=== PATIENT | female | born 1965 | race African-American/Black ===

== ENCOUNTER 2017-02-27 20:13 | Observation (INO) | payer MEDICAID, OTHER ==
[~2017-02-27 20:13] MED LIST: AZIT500T2 PO; BENZ1CAP51 PO; DICL1GEL7 TOPICAL; EXCETAB PO; GABA300C5 PO; HYDR-3583 PO; HYDR25TA5 PO; PROZ20CA11 PO; ROPI0.5T PO
[2017-02-27 20:15] VITALS: BP 171/103; PULSE 85; RESP 16; TEMP 97.9; O2SAT 100
--- NOTE | 2017-02-27 22:10 | RADRPT ---
EXAM DATE/TIME: 02/27/2017 21:22 [facility] COMPARISON: No previous studies available for comparison. INDICATIONS : Chest pain. MEDICAL HISTORY : None. SURGICAL HISTORY : None. ENCOUNTER: Initial ACUITY: 1 day PAIN SCORE: 5/10 LOCATION: Bilateral chest FINDINGS: PA and lateral views of the chest demonstrate the lungs to be symmetrically aerated without evidence of mass, infiltrate or effusion. The cardiomediastinal contours are unremarkable. Osseous structure s are intact. CONCLUSION: No acute cardiopulmonary process. Conrado Prado MD on February 27, 2017 at 22:07 Board Certified Radiologist. This report was verified electronically.
[2017-02-27 22:38] LABS: BASOPHIL % 0.7 % (0.0-2.0); EOSINOPHIL # 0.1 TH/MM3 (0-0.4); EOSINOPHIL % 2.1 % (0.0-4.0); HEMO FLAGS DIFF FINAL; LYMPH % 44.4 % (9.0-44.0); LYMPHOCYTE # 2.1 TH/MM3 (1.0-4.8); MEAN CELL VOLUME 83.6 FL (80.0-100.0); MEAN CORPUSCULAR HEMOGLOBIN 27.1 PG (27.0-34.0); MEAN CORPUSCULAR HGB CONC 32.4 % (32.0-36.0); MONO % 10.7 % (0.0-8.0); NEUT % 42.1 % (16.0-70.0); PLATELET COUNT 312 TH/MM3 (150-450); RED BLOOD COUNT 4.43 MIL/MM3 (4.00-5.30); RED CELL DISTRIBUTION WIDTH 14.8 % (11.6-17.2); WHITE BLOOD COUNT 4.8 TH/MM3 (4.0-11.0)
--- NOTE | 2017-02-27 22:45 | PD ---
HPI Chief Complaint: Chest Pain Time Seen by Provider: 22:37 Travel History International Travel<30 days: No Contact w/Intl Traveler<30days: No Traveled to known affect area: No History of Present Illness HPI 51-year-old female complains of chest pain. Patient states that the chest pain started yesterday. Patient states that the pain aching pain started in the left chest with radiation to left upper arm. Patient states that the pain was intermittent yesterday but became constant since this morning. Patient denies any nausea vomiting diaphoresis. Patient denies any palpitation. Patient denies any coughing congestion fever chills. Patient denies any history of CAD. Patient has history hypertension however not on medication recently. Patient denies history diabetes or dyslipidemia. Patient is a nonsmoker. Patient denies family history of heart disease. Patient states that she has been burping recently. On a scale of 1-10 the pain is an 8. Patient also states that she has more swelling of the lower extremity for the past 2 days. Patient states that she has been doing a lot of walking recently. Patient denies any history of CHF. PFSH Past Medical History Hx Anticoagulant Therapy: No Arthritis: Yes (OSTEOARTHRITIS) Autoimmune Disease: No Anxiety: No Depression: Yes Heart Rhythm Problems: No Cancer: No Cardiovascular Problems: Yes (HTN) High Cholesterol: No Chemotherapy: No Chest Pain: No Congestive Heart Failure: No Cerebrovascular Accident: No Diabetes: No Diminished Hearing: No Endocrine: No Gastrointestinal Disorders: Yes (Constipation) GERD: No Genitourinary: No Hepatitis: No Hiatal Hernia: No Hypertension: Yes Immune Disorder: No Implanted Vascular Access Dvce: No Musculoskeletal: Yes (CHRONIC BACK PAIN) Neurologic: No Psychiatric: Yes Reproductive: No Respiratory: No Immunizations Current: Yes Thyroid Disease: No Ulcer: No PNEUMOCCOCAL Vaccine (Year): 2 Menopausal: Yes : 3 Para: 3 Ovarian Cysts: Yes Tubal Ligation: Yes Past Surgical History Abdominal Surgery: No Cardiac Surgery: No Ear Surgery: No Endocrine Surgery: No Eye Surgery: No Genitourinary Surgery: No Gynecologic Surgery: Yes (hysterectomy) Hysterectomy: Yes Joint Replacement: No Neurologic Surgery: No Oral Surgery: No Pacemaker: No Thoracic Surgery: No Other Surgery: Yes Social History Alcohol Use: No (STATES QUIT 2014) Tobacco Use: No (QUIT 2014) Substance Use: No (2012) Allergies-Medications (Allergen,Severity, Reaction): Coded Allergies: Sulfa (Sulfonamide Antibiotics) (Unverified Allergy, Severe, HIVES, TONGUE SWELLING, 11/19/16) celecoxib (Unverified Allergy, Severe, HIVES, 11/19/16) acetaminophen (Unverified Allergy, Intermediate, HIVES, 11/19/16) oxycodone (Unverified Allergy, Intermediate, HIVES, 11/19/16) Reported Meds & Prescriptions Reported Meds & Active Scripts Active Benzonatate 200 Mg Cap 200 Mg PO TID PRN Azithromycin 500 Mg Tab 500 Mg PO DAILY Ropinirole 0.5 Mg Tab 0.5 Mg PO HS Take 1-3 tabs qhs Prozac (Fluoxetine HCl) 20 Mg Cap 20 Mg PO DAILY Diclofenac Topical 1% Gel 1 Applic TOPICAL QID Hydrocodone-Acetaminophen 10-325 mg Tab 1 Tab PO Q6H PRN Hydrochlorothiazide 25 Mg Tab 25 Mg PO DAILY Reported Excedrin Migraine (Wlpcveh-Qbcwbfvmjhcao-Yiqiqyij) 250-250-65 Mg Tab 2 Tab PO PRN Gabapentin 300 Mg Cap 300 Mg PO TID Review of Systems General / Constitutional: No: Fever Eyes: No: Visual changes HENT: No: Headaches Cardiovascular: Positive: Chest Pain or Discomfort Respiratory: No: Shortness of Breath Gastrointestinal: No: Abdominal Pain Genitourinary: No: Dysuria Musculoskeletal: No: Pain Skin: No Rash Neurologic: No: Weakness Psychiatric: No: Depression Endocrine: No: Polydipsia Hematologic/Lymphatic: No: Easy Bruising Physical Exam Narrative GENERAL: Well-nourished, well-developed patient. SKIN: Focused skin assessment warm/dry. HEAD: Normocephalic. EYES: No scleral icterus. No injection or drainage. NECK: Supple, trachea midline. No JVD or lymphadenopathy. CARDIOVASCULAR: Regular rate and rhythm without murmurs, gallops, or rubs. RESPIRATORY: Breath sounds equal bilaterally. No accessory muscle use. GASTROINTESTINAL: Abdomen soft, non-tender, nondistended. MUSCULOSKELETAL: No cyanosis, or edema. BACK: Nontender without obvious deformity. No CVA tenderness. Neurologic exam normal. Data Data Last Documented VS Vital Signs Date Time Temp Pulse Resp B/P (MAP) Pulse Ox O2 Delivery O2 Flow Rate FiO2 02/27/17 20:15 97.9 85 16 171/103 (125) 100 Room Air Orders Orders Electrocardiogram (02/27/17 20:40) Basic Metabolic Panel (Bmp) (02/27/17 20:40) Ckmb (Isoenzyme) Profile (02/27/17 20:40) Complete Blood Count With Diff (02/27/17 20:40) Magnesium (Mg) (02/27/17 20:40) Prothrombin Time / Inr (Pt) (02/27/17 20:40) Act Partial Throm Time (Ptt) (02/27/17 20:40) Troponin I (02/27/17 20:40) Chest, Pa & Lat (02/27/17 20:40) CKMB (02/27/17 21:40) CKMB% (02/27/17 21:40) Labs Laboratory Tests Test 02/27/17 21:40 White Blood Count 4.8 TH/MM3 Red Blood Count 4.43 MIL/MM3 Hemoglobin 12.0 GM/DL Hematocrit 37.0 % Mean Corpuscular Volume 83.6 FL Mean Corpuscular Hemoglobin 27.1 PG Mean Corpuscular Hemoglobin Concent 32.4 % Red Cell Distribution Width 14.8 % Platelet Count 312 TH/MM3 Mean Platelet Volume 8.0 FL Neutrophils (%) (Auto) 42.1 % Lymphocytes (%) (Auto) 44.4 % Monocytes (%) (Auto) 10.7 % Eosinophils (%) (Auto) 2.1 % Basophils (%) (Auto) 0.7 % Neutrophils # (Auto) 2.0 TH/MM3 Lymphocytes # (Auto) 2.1 TH/MM3 Monocytes # (Auto) 0.5 TH/MM3 Eosinophils # (Auto) 0.1 TH/MM3 Basophils # (Auto) 0.0 TH/MM3 CBC Comment DIFF FINAL Differential Comment Prothrombin Time 10.0 SEC Prothromb Time International Ratio 0.9 RATIO Activated Partial Thromboplast Time 27.0 SEC Blood Urea Nitrogen 14 MG/DL Creatinine 0.79 MG/DL Random Glucose 85 MG/DL Calcium Level 8.7 MG/DL Magnesium Level 1.7 MG/DL Sodium Level 141 MEQ/L Potassium Level 3.1 MEQ/L Chloride Level 106 MEQ/L Carbon Dioxide Level 28.0 MEQ/L Anion Gap 7 MEQ/L Estimat Glomerular Filtration Rate 93 ML/MIN Total Creatine Kinase 177 U/L Creatine Kinase MB 1.5 NG/ML Troponin I LESS THAN 0.02 NG/ML MDM Medical Decision Making Medical Screen Exam Complete: Yes Emergency Medical Condition: Yes Interpretation(s) 12:01 AM. EKG shows sinus rhythm nonspecific ST-T wave change. Last Impressions Chest X-Ray 02/27/172039 Signed Impressions: Service Date/Time: Monday, February 27, 2017 21:22 - CONCLUSION: No acute cardiopulmonary process. Conrado Prado MD 12:01 AM. CBC within normal limit. BMP within normal limit. Cardiac enzymes are normal. Differential Diagnosis Differential diagnosis including musculoskeletal, angina, AZ, PE, pneumothorax. Narrative Course 51-year-old female with left-sided chest pain. Toradol 30 mg IV. Patient will be admitted to the chest pain center. Diagnosis Primary Impression: Chest pain Qualified Codes: R07.9 - Chest pain, unspecified Ramos Martinez MD Feb 27, 2017 22:45
[2017-02-27 22:50] LABS: INTERNATIONAL NORMALIZED RATIO 0.9 RATIO
[2017-02-27 22:55] LABS: ANION GAP 7 MEQ/L (5-15); BLOOD UREA NITROGEN 14 MG/DL (7-18); CHLORIDE 106 MEQ/L (98-107); GLOMERULAR FILTRATION RATE 93 ML/MIN (>89); MAGNESIUM 1.7 MG/DL (1.5-2.5); POTASSIUM 3.1 MEQ/L (3.5-5.1); SODIUM (NA) 141 MEQ/L (136-145)
[2017-02-27 22:58] LABS: CREATINE KINASE 177 U/L (26-192)
[2017-02-27 23:14] LABS: CKMB 1.5 NG/ML (0.5-3.6)
[2017-02-28] VITALS (7 sets, daily range): BP systolic 133–154; BP diastolic 76–88; PULSE 74–86; RESP 16–22; TEMP 96.2–97.9; O2SAT 98–100
[2017-02-28] MEDS ORDERED: SODIUM CHLORIDE 0.9% FLUSH 10 ML FLUSH IV FLUSH PRN (00:15)
[2017-02-28] MEDS ORDERED: ONDANSETRON HCL 4 MG/2 ML VIAL IV PUSH PRN (00:15)
[2017-02-28] MEDS ORDERED: ACETAMINOPHEN 500 MG CPLT PO PRN (00:15)
[2017-02-28] MEDS ORDERED: KETOROLAC TROMETHAMINE 30 MG/ML (IVP) VIAL IV PUSH ONE (00:15)
[2017-02-28 03:00] LABS: CREATINE KINASE 167 U/L (26-192)
[2017-02-28 03:12] LABS: CKMB 1.4 NG/ML (0.5-3.6)
[2017-02-28 05:02] LABS: CREATINE KINASE 165 U/L (26-192)
[2017-02-28] MEDS ORDERED: ORPHENADRINE INJ 60 MG/2 ML AMP IM ONE (07:00)
[2017-02-28] MEDS ORDERED: UNKNOWN MED (08:20)
[2017-02-28] MEDS ORDERED: cloNIDine HCL 0.1 MG TAB PO PRN (09:00)
[2017-02-28] MEDS ORDERED: SODIUM CHLORIDE 0.9% FLUSH 10 ML FLUSH IV FLUSH SCH (09:00)
[2017-02-28] MEDS ORDERED: POTASSIUM CHLORIDE 25 MEQ EFFERVESCENT TAB PO ONE (09:00)
--- NOTE | 2017-02-28 09:22 | HHI.HP ---
HPI Primary Care Physician No Primary Care Physician Chief Complaint Chest pain History of Present Illness This is a 51-year-old female that presents to ED with a complaint of left sided chest pains and she points to the left lateral aspect almost into axillary region to indicate where the discomfort is located. Is better constantly since last night. Greater than 12 hours. Certain movements seem to worsen. She has found that she has been belching more recently and it does seem to help. Has a hard time describing the type of discomfort. Rates it as a 8 out of 10 of the most intense level but more so been a 3-4 out of 10. Denies associated shortness of breath, nausea, or diaphoresis. She has complaint of some swelling in her ankles but states that improves when she elevates her legs. She also states that she has an issue with her right ankle, states she has tendinitis of her right Achilles. Denies recent illness. Denies fevers or chills. Review of Systems General: Patient denies fevers, chills recent, and recent travel HEENT: Patient denies headache, sore throat, difficulty swallowing. Cardiovascular: Has the chest discomfort as mentioned above. Denies sensation of heart beating rapidly or irregularly. No syncope. Denies diaphoresis. Respiratory: Denies shortness of breath or inspirational chest discomfort. Denies coughing wheezing or hemoptysis. GI: Patient denies nausea, vomiting, diarrhea, abdominal pain, bloody stools. Musculoskeletal: She complains of intermittent swelling in her ankles but improves when she elevates them. This has been going on for quite some time. Complains of right ankle pain stating is from 10 denies ever right Achilles. Denies calf pain. Neurovascular: Patient denies numbness, tingling, weakness in extremities. Denies headache. Endocrine: Denies polyuria and polydipsia. Hematologic: Denies easy bruising. Skin: Denies rash or itching. Past Family Social History Allergies: Coded Allergies: Sulfa (Sulfonamide Antibiotics) (Unverified Allergy, Severe, HIVES, TONGUE SWELLING, 11/19/16) celecoxib (Unverified Allergy, Severe, HIVES, 11/19/16) acetaminophen (Unverified Allergy, Intermediate, HIVES, 11/19/16) oxycodone (Unverified Allergy, Intermediate, HIVES, 11/19/16) Past Medical History States in the past she has been told that she had hypertension at times but never medicated. Denies hyperlipidemia diabetes or CAD. Past Surgical History Hysterectomy. Reported Medications Reported Meds & Active Scripts Active Diclofenac Topical 1% Gel 1 Applic TOPICAL QID Hydrocodone-Acetaminophen 10-325 mg Tab 1 Tab PO Q6H PRN Reported [Unknown Med] Excedrin Migraine (Gkiunps-Vaiezbzirrldl-Zzwenmlf) 250-250-65 Mg Tab 2 Tab PO PRN Gabapentin 300 Mg Cap 300 Mg PO TID Active Ordered Medications Current Medications Medications (Trade) Dose Ordered Sig/Tatiana Route Start Time Stop Time Status Last Admin (NS Flush) 2 ml UNSCH PRN IV FLUSH 02/28/17 00:15 (NS Flush) 2 ml BID IV FLUSH 02/28/17 09:00 (Zofran Inj) 4 mg Q6H PRN IV PUSH 02/28/17 00:15 (Catapres) 0.1 mg Q4H PRN PO 02/28/17 09:00 Family History She is not sure family history of CAD. Social History Patient quit smoking 1-1/2 years ago. No alcohol since 2014. Denies illicit drugs. Physical Exam Vital Signs Vital Signs Date Time Temp Pulse Resp B/P (MAP) Pulse Ox O2 Delivery O2 Flow Rate FiO2 02/28/17 08:46 154/78 (103) 100 02/28/17 07:10 74 17 149/79 (102) 100 Room Air 02/28/17 06:11 81 16 138/88 (105) 100 Room Air 02/28/17 04:07 16 02/28/17 01:42 98 21 02/28/17 01:18 104 98 Room Air 02/27/17 20:15 97.9 85 16 171/103 (125) 100 Room Air Physical Exam GENERAL: This is a well-nourished, well-developed patient, in no apparent distress. Patient speaks in clear complete sentences. Patient is pleasant. HEENT: Head is atraumatic and normocephalic. Neck is supple without lymphadenopathy and trachea is midline. No JVD or carotid bruits. CARDIOVASCULAR: Regular rate and rhythm without murmurs, gallops, or rubs. RESPIRATORY: Clear to auscultation. Breath sounds equal bilaterally. No wheezes , rales, or rhonchi. Left lateral chest wall is tender worsening the symptoms that she has had. No use of accessory muscles. GASTROINTESTINAL: Abdomen is nontender, nondistended. Abdomen soft. No obvious pulsatile mass or bruit. No CVA tenderness. Strong femoral pulses bilaterally. Normal bowel sounds in all quadrants. MUSCULOSKELETAL: Patient is moving upper and lower extremities freely. No calf tenderness or edema, no Homans sign. Strong pulses in upper and lower extremities. NEUROLOGICAL: Patient is alert and oriented. Cranial nerves 2-12 are grossly intact. No focal deficits and speech is clear. SKIN: No rash and turgor is normal. Laboratory Laboratory Tests Test 02/27/17 21:40 02/28/17 02:15 02/28/17 04:02 White Blood Count 4.8 Red Blood Count 4.43 Hemoglobin 12.0 Hematocrit 37.0 Mean Corpuscular Volume 83.6 Mean Corpuscular Hemoglobin 27.1 Mean Corpuscular Hemoglobin Concent 32.4 Red Cell Distribution Width 14.8 Platelet Count 312 Mean Platelet Volume 8.0 Neutrophils (%) (Auto) 42.1 Lymphocytes (%) (Auto) 44.4 Monocytes (%) (Auto) 10.7 Eosinophils (%) (Auto) 2.1 Basophils (%) (Auto) 0.7 Neutrophils # (Auto) 2.0 Lymphocytes # (Auto) 2.1 Monocytes # (Auto) 0.5 Eosinophils # (Auto) 0.1 Basophils # (Auto) 0.0 CBC Comment DIFF FINAL Differential Comment Prothrombin Time 10.0 Prothromb Time International Ratio 0.9 Activated Partial Thromboplast Time 27.0 Blood Urea Nitrogen 14 Creatinine 0.79 Random Glucose 85 Calcium Level 8.7 Magnesium Level 1.7 Sodium Level 141 Potassium Level 3.1 Chloride Level 106 Carbon Dioxide Level 28.0 Anion Gap 7 Estimat Glomerular Filtration Rate 93 Total Creatine Kinase 177 167 165 Creatine Kinase MB 1.5 1.4 Troponin I LESS THAN 0.02 LESS THAN 0.02 LESS THAN 0.02 Result Diagram: 02/27/17213902/27/172139 Caprini VTE Risk Assessment Caprini VTE Risk Assessment: No/Low Risk (score <= 1) Caprini Risk Assessment Model Point Value = 1 Point Value = 2 Point Value = 3 Point Value = 5 Age 41-60 Minor surgery BMI > 25 kg/m2 Swollen legs Varicose veins or History of unexplained or recurrent spontaneous Oral contraceptives or hormone replacement Sepsis (< 1 month) Serious lung disease, including pneumonia (< 1 month) Abnormal pulmonary function Acute myocardial infarction Congestive heart failure (< 1 month) History of inflammatory bowel disease Medical patient at bed rest Age 61-74 Arthroscopic surgery Major open surgery (> 45 min) Laparoscopic surgery (> 45 min) Malignancy Confined to bed (> 72 hours) Immobilizing plaster cast Central venous access Age >= 75 History of VTE Family history of VTE Factor V Leiden Prothrombin [id number] Lupus anticoagulant Anticardiolipin antibodies Elevated serum homocysteine Heparin-induced thrombocytopenia Other congenital or acquired thrombophilia Stroke (< 1 month) Elective arthroplasty Hip, pelvis, or leg fracture Acute spinal cord injury (< 1 month) Prophylaxis Regimen Total Risk Factor Score Risk Level Prophylaxis Regimen 0-1 Low Early ambulation 2 Moderate Order ONE of the following: *Sequential Compression Device (SCD) *Heparin 5000 units SQ BID 3-4 Higher Order ONE of the following medications: *Heparin 5000 units SQ TID *Enoxaparin/Lovenox 40 mg SQ daily (WT < 150 kg, CrCl > 30 mL/min) *Enoxaparin/Lovenox 30 mg SQ daily (WT < 150 kg, CrCl > 10-29 mL/min) *Enoxaparin/Lovenox 30 mg SQ BID (WT < 150 kg, CrCl > 30 mL/min) AND/OR *Sequential Compression Device (SCD) 5 or more Highest Order ONE of the following medications: *Heparin 5000 units SQ TID (Preferred with Epidurals) *Enoxaparin/Lovenox 40 mg SQ daily (WT < 150 kg, CrCl > 30 mL/min) *Enoxaparin/Lovenox 30 mg SQ daily (WT < 150 kg, CrCl > 10-29 mL/min) *Enoxaparin/Lovenox 30 mg SQ BID (WT < 150 kg, CrCl > 30 mL/min) AND *Sequential Compression Device (SCD) Assessment and Plan Assessment and Plan * Chest pain: Her symptoms appear to be atypical. She has been seen by Dr. Varghese cardiology and the chest pain center. Initially the plan was to try a Te protocol ETT however the patient was observed having difficulty walking from the wheelchair to examination room. He was living which she states is from her right Achilles tendinitis. A Lexiscan is now been ordered. She'll be discharged home if her stress test is nonischemic. She should follow- up PCP. She should monitor her blood pressure readings to discuss with her PCP. * Hypokalemia: Patient was given potassium supplementation. Patient is stable this time. She is agreeable to this plan. Sammy Rios Feb 28, 2017 09:22
[2017-02-28] MEDS ORDERED: ACETAMINOPHEN/HYDROcodone 325 MG/10 MG TAB PO PRN (13:00)
[2017-02-28] MEDS ORDERED: REGADENOSON INJ 0.4 MG/5 ML SYR ONE (13:33)
--- NOTE | 2017-02-28 15:07 | RADRPT ---
EXAM DATE/TIME: 02/28/2017 12:54 [facility] COMPARISON: No previous studies available for comparison. INDICATIONS : Left sided chest pain. Angina. DOSE: 35 mCi Tc99m Myoview at stress. 10.8 mCi Tc99m Myoview at rest. 0.4 mg Lexiscan STRESS SYMPTOMS: Headache. EJECTION FRACTION: 66% MEDICAL HISTORY : Hypertension. SURGICAL HISTORY : Tubal ligation. Hysterectomy. ENCOUNTER: Initial ACUITY: 1 day PAIN SCALE: 3/10 LOCATION: Left chest TECHNIQUE: The patient underwent pharmacologic stress with infusion of prescribed dose. Continuous ECG tracing was monitored during stress. Gated SPECT imaging was performed after stress and conventional SPECT i maging was performed at rest. The examination was performed on a SPECT/CT scanner, both attenuation and non-corrected datasets were reviewed. FINDINGS: DISTRIBUTION: The maximum perfused segment at stress is in the septal wall. PERFUSION STUDY: There is a small area 10% redistribution involving the anterior wall. No significant redistribution a ppreciated. GATED STUDY: There is a small area of hypokinesia involving the septum approaching the apex. Otherwise normal ivy on noted throughout. CONCLUSION: No reversible defects observed to suggest acute ischemia. RISK CATEGORY: Low Froilan Capone Jr., MD on February 28, 2017 at 15:02 Board Certified Radiologist. This report was verified electronically.
--- NOTE | 2017-02-28 15:57 | HHI.DCPOC ---
Discharge Care Plan Diagnosis: (1) Chest pain (2) Hypokalemia (3) Obesity Goals to Promote Your Health * To prevent worsening of your condition and complications * To maintain your health at the optimal level Directions to Meet Your Goals Take your medications as prescribed Follow your dietary instruction Follow activity as directed Keep your appointments as scheduled Take your immunizations and boosters as scheduled If your symptoms worsen call your PCP, if no PCP go to Urgent Care Center or Emergency Room Smoking is Dangerous to Your Health. Avoid second hand smoke Call the 24-hour hour crisis hotline for domestic abuse at Sammy Rios Feb 28, 2017 15:57
--- NOTE | 2017-02-28 21:57 | EKG ---
Date Performed: 02/28/2017 Time Performed: 02:06:59 PTAGE: 51 years EKG: Sinus rhythm NORMAL ECG Since PREVIOUS TRACING , no significant change noted PREVIOUS TRACIN02/27/2017 21.54 DOCTOR: Enedina Varghese Interpretating Date/Time 02/28/2017 21:55:41
--- NOTE | 2017-02-28 22:00 | TR ---
Date Performed: 02/28/2017 Time Performed: 13:40:17 DOCTOR: Enedina Varghese DRUG LIST: CLINICAL HISTORY: ANGINA REASON FOR TEST: REASON FOR ENDING: OBSERVATION: CONCLUSION: Lexiscan stress test was performed under standard four minute protocol. Radionuclid e was injected one minute prior to ending the test. No electrocardiographic abormalities were present to suggest ischemia. Nuclear imaging and interpretation are pending. COMMENTS:
--- NOTE | 2017-02-28 22:01 | EKG ---
Date Performed: 02/27/2017 Time Performed: 21:54:43 PTAGE: 51 years EKG: Sinus rhythm WITH SINUS ARRHYTHMIA NORMAL ECG Since PREVIOUS TRACING , no significant change noted PREVIOUS TRACIN01/20/2015 15.42 DOCTOR: Enedina Varghese Interpretating Date/Time 02/28/2017 21:59:56
== END 2017-02-28 17:34 | disposition home or self-care (01) ==
LOC: NEPE 20:13 → NEDA 02-28 00:09 → NEDH 02-28 04:09 → NEDA 02-28 11:18 → NEPGCP 02-28 15:21
PROVIDERS: ADMIT Internal Medicine Cardiovascular Disease; ATTEND Internal Medicine Cardiovascular Disease
DX: R07.9 Chest pain, unspecified (principal); E87.6 Hypokalemia; E66.9 Obesity, unspecified; I10 Essential (primary) hypertension; M19.90 Unspecified osteoarthritis, unspecified site; F32.9 Major depressive disorder, single episode, unspecified; K59.00 Constipation, unspecified; M54.9 Dorsalgia, unspecified; G89.29 Other chronic pain; Z87.891 Personal history of nicotine dependence; Z79.899 Other long term (current) drug therapy
CPT/HCPCS: 71020; 78452; 80048; 82550; 82552; 83735; 84484; 85025; 85610; 85730; 93005; 93017; 96374; 96376; 99285; A9502; G0378; J1885; J2360; J2785

== ENCOUNTER 2017-11-07 08:30 | Inpatient (IN) ==
[2017-11-11] MEDS ORDERED: Sodium Chlor 0.9% Inj 250 ML ONE (11:10)
[2017-11-11] MEDS ORDERED: fentaNYL Citrate Inj 100 MCG/2 ML Ampul ONE ×2 (11:34→17:04)
[2017-11-11] MEDS ORDERED: Famotidine PF Inj 20 MG/2 ML Vial ONE (11:34)
[2017-11-11] MEDS ORDERED: Sodium Chlor 0.9% Inj 73.07 ML, Ropivacaine 0.5% PF Inj 24.63 ML, Ketorolac Inj 30 MG, ... P-ARTICULR SCH ×5 (11:45)
[2017-11-11] MEDS ORDERED: Chlorhexidine 4% Topical 120 APPLIC/120 ML Bottle TOPICAL SCH (12:00)
[2017-11-11] MEDS ORDERED: Neostigmine Inj 5 MG/5 ML Syringe IV.PUSH ONE (12:00)
[2017-11-11] MEDS ORDERED: Glycopyrrolate Inj 1 MG/5 ML Syringe IV.PUSH ONE (12:00)
[2017-11-11] MEDS ORDERED: Phenylephrine/NS 1000 MCG/10ML Syringe IV.PUSH ONE (12:00)
[2017-11-11] MEDS ORDERED: Sodium Chlor 0.9% Inj 500 ML IV.SIG SCH (12:00)
[2017-11-11] MEDS ORDERED: Chlorhexidine Gluconate 2% 1 Pack (2 Cloths) TOPICAL SCH (12:00)
[2017-11-11] MEDS ORDERED: Vancomycin Inj 1,000 MG in Sodium Chlor 0.9% Inj 250 ML IV.SIG SCH (12:00)
[2017-11-11] MEDS ORDERED: Lidocaine PF 1% Inj 5 ML Syringe INFILTRATN ONE (12:00)
[2017-11-11] MEDS ORDERED: ceFAZolin Inj 2,000 MG in Sodium Chlor 0.9% Inj 100 ML IV.SIG ONE (12:00)
[2017-11-11] MEDS: Metoprolol Tartrate 25 MG Tablet PO SCH ×2 (12:11→12:14)
[2017-11-11] MEDS ORDERED: Bisacodyl 10 MG Supp RECTAL PRN (15:37)
--- NOTE | 2017-11-11 15:39 | P.BOP ---
- Preoperative Diagnosis (1) Osteoarthritis of knee - Postoperative Diagnosis (1) Osteoarthritis of knee Date of procedure: 11/11/17 Procedure: R TKR Anesthesia: GETA, regional, local Surgeon: Rajiv Bailey MD Draw End Hand: Christine Mclaughlin Estimated blood loss (mL): 100 Tourniquet time (min): 72 Pathology: none sent Condition: stable Disposition: PACU
--- NOTE | 2017-11-11 15:49 | P.DCO ---
- Physical Therapy Physical Therapy: Gait training, Transfer training, bed to chair Knee: Total knee, Protocol: Right, Full weight bearing Canvas Knee Splint: When in bed with 2 pillows between thighs Right Lower Extremity Weight Bearing: Weight bearing as tolerated Left Lower Extremity Weight Bearing: Weight bearing as tolerated - Nursing RN: 3 days/week x 2 weeks Nursing: Dressing changes (clean incision with alcohol and apply dry, sterile dressing ) Additional instructions: aspirin 81 mg bid x 4 weeks dvt prop - Certification Need for Home Health services: I have seen patient Cee Kirby on 11/11/17. My clinical findings support the need for the requested home health care services because: Need for Home Health Services: Limited ability to care for self Homebound Certification: I certify that my clinical findings support that this patient is homebound because: Homebound Certification: Post-op weakness
[2017-11-11] MEDS ORDERED: Post-op Orders (for Pharmacy) OTHER STA (15:50)
[2017-11-11] MEDS ORDERED: *morphine SULFATE 4 MG/ML PERIprocedure ONLY ONE ×2 (16:29→17:46)
--- NOTE | 2017-11-11 16:34 | XR ---
EXAM DATE: 11/11/2017 4:25 PM EDT AGE/SEX: 52 years / Female INDICATIONS: Post op right knee surgery. CLINICAL DATA: This is the patient's initial encounter. Patient reports that signs and symptoms have been present for 1 day and indicates a pain score of 10/10. MEDICAL/SURGICAL HISTORY: None. None. COMPARISON: POI, XR KNEE COMPLETE, RIGHT, 08/23/2016. . FINDINGS: Right total knee arthroplasty. All 3 components appear to be probably position without fracture. CONCLUSION: Appropriate postoperative appearance of the right knee status post total arthroplasty. Electronically signed by: Conrado Prado MD 11/11/2017 4:33 PM EDT
[2017-11-11] MEDS ORDERED: Morphine Inj 4 MG/ML Vial ONE (17:04)
[2017-11-11] MEDS ORDERED: *Ondansetron Inj 4 MG/2 ML Vial PERIprocedural Use ONLY ONE (17:20)
--- NOTE | 2017-11-11 17:21 | MP ---
cc: Rajiv Bailey MDhatibWarren DATE OF OPERATION: 11/11/2017 PREOPERATIVE DIAGNOSES: 1. Right knee severe tricompartment osteoarthritis. 2. Morbid obesity. POSTOPERATIVE DIAGNOSES: 1. Right knee severe tricompartment osteoarthritis. 2. Morbid obesity. PROCEDURE PERFORMED: Right total knee arthroplasty, cemented [employer]. SURGEON: Rajiv Bailey MD. [employer] WORKER: Christine Mclaughlin PA-C. ANESTHESIA: General, adductor canal, saphenous nerve block, intraarticular block. COMPLICATIONS: None. ESTIMATED BLOOD LOSS: 100 mL. SPECIMENS: None. PLAN: Activity is per orders. PROCEDURE IN DETAIL: My assistant to the director, Christine Mclaughlin PA-C was present for the entire surgical case. She was medically necessary for the entire case, because of the complexity of the case and to facilitate the performance of the procedure. The GYMNASTICS INSTRUCTOR at the back table was not for this case to manipulate the instrument, e.g., multiple type of soft tissue retractors, trial implants, and firm implants, including bone cement. The patient was brought in the operating room under satisfactory general anesthesia by the department of anesthesia. The right lower extremity was prepped and draped in the usual sterile manner. Because of the patient's morbid obesity and very large size, a 44-inch tourniquet had to be used on the thigh. Great care was made to protect all pressure points. The right lower extremity was prepped and draped in the usual sterile manner. The extremity was exsanguinated by elevation and tourniquet was inflated to 275 mmHg. The tourniquet time was equal to 72 minutes. Anterior exposure to knee was made. A rather small skin incision was made for the very large size of the patient. Great care was made to protect all pressure points. Dissection was carried through a considerable amount of adipose tissue. A paramedian capsulotomy was performed. The patient was found to have severe osteoarthritis involving all three compartments of the knee. The remaining portion of the medial and lateral meniscus were removed. The prepatellar fat pad was excised. The anterior cruciate ligament was removed. The posterior cruciate ligament was preserved. Using the Bi[employer]-Vangu[employer] total knee arthroplasty system, IM guide was used to the distal femur, a 5 degree valgus cut to accept a 65 mm femoral component. Extramedullary guide was used for the proximal tibia and this was used to accept a 75 mm tibial component. Appropriate balancing of the knee was made with both flexion and extension. A 14 mm insert was found to be most stable in both flexion and extension. Lateral retinacular release was performed with the patella grooving well within the patellofemoral compartment. Undersurface of the patella was removed to accept a 31 mm patellar prosthesis. Again, the patient was found to have satisfactory stability in both flexion and extension, satisfactory balancing of the patella with a "no thumbs technique." All trial components were removed. Preparation for cementing was made. Two packages of Palacos bone cement by [employer] were used. First, the tibial component was cemented, which was a 75 mm tibial component, followed by the femoral component, which was a 65 mm femoral component. All excess bone cement was removed. The undersurface of the patella was removed to accept a 3-pronged patellar prosthesis. A 31 mm component was then suspended. All excess bone cement was removed. The bone cement was allowed to harden for 13 minutes. A 14 x 75 mm polyethylene plastic "lip" was then used for the polyethylene plastic, then, the appropriate clipping mechanism to secure the polyethylene plastic to the tibial tray. The knee was irrigated with 4000 mL of sterile saline antibiotic solution. The knee also was irrigated with local anesthesia provided by the department of pharmacy. The tourniquet was deflated. All bleeders were coagulated. The wound itself was dry. It was closed over 2 Hemovac drains. The capsule and extensor mechanism were repaired using multiple interrupted #2 Tycron sutures. The subcutaneous tissue was closed in multiple layers using 0 Vicryl and 2-0 Vicryl. Skin was approximated with skin jo ann. Sterile dressings were applied. The patient tolerated the procedure well and went to the recovery room in stable, satisfactory condition. MD NARDA May/rh , 03:32 PM , 03:45 PM
[2017-11-11] MEDS ORDERED: Zolpidem Tartrate 5 MG Tablet PO PRN (21:00)
[2017-11-11] MEDS: Senna/Docusate Sodium 8.6/50 MG Tablet PO SCH (22:11)
[2017-11-12 05:42] LABS: Hematocrit 27.8 % (35.0-46.0); Hemoglobin 9.5 gm/dL (11.6-15.3)
--- NOTE | 2017-11-12 07:11 | P.PNOP ---
Subjective Interval history: POD#1 R TKR C/O post op pain. No SOB;no chest pain Explained operative findings;answered muliple questions Physical Exam Vital signs: Vital Signs 11/11/17 11:10 11/11/17 11:32 11/11/17 15:49 Temperature 98.6 F 97.6 F Pulse Rate 76 64 Respiratory Rate 18 16 Blood Pressure 136/77 94/50 L Pulse Oximetry 99 100 100 11/11/17 16:00 11/11/17 16:15 11/11/17 16:30 Temperature Pulse Rate 64 61 61 Respiratory Rate 16 16 16 Blood Pressure 95/54 L 110/62 110/69 Pulse Oximetry 100 100 100 11/11/17 16:45 11/11/17 17:00 11/11/17 18:00 Temperature Pulse Rate 61 61 61 Respiratory Rate 18 18 18 Blood Pressure 101/58 L 100/60 91/45 L Pulse Oximetry 100 100 100 11/11/17 19:00 11/11/17 20:34 11/11/17 20:55 Temperature 97.6 F 98.2 F Pulse Rate 61 61 66 Respiratory Rate 18 18 18 Blood Pressure 85/50 L 95/50 L 96/54 L Pulse Oximetry 100 100 99 11/12/17 00:00 11/12/17 04:00 Temperature 98.8 F 98.8 F Pulse Rate 80 66 Respiratory Rate 19 18 Blood Pressure 110/58 L 108/52 L Pulse Oximetry 97 96 Intake & Output 11/11/17 11/11/17 11/12/17 06:59 18:59 06:59 Intake Total 1450 / 1450 580 / 580 Output Total 100 / 100 1100 / 1100 Balance 1350 / 1350 -520 / -520 Weight 131.4 kg 138.4 kg Intake: IV 250 / 250 100 / 100 Vancomycin Inj 1,000 MG In NS 250 / 250 Inj 250 ML @ 200 mls/hr IV.SIG SECURITY INSPECTOR PREMA Rx#:[id number] Ancef Inj 1,000 MG In NS Inj 100 / 100 100 ML @ 200 mls/hr IV.SIG Q6H PREMA Rx#:[id number] Oral 480 / 480 Anesthesia Amount 1200 / 1200 Output: Urine 1100 / 1100 Estimated Blood Loss 100 / 100 Other: Date of Last Bowel Movement 11/10/17 Weight On Admission 131.4 kg - Routine HEENT Exam Comments: N/V intact Negative grayson's,no calf tenderness Results - Labs CBC & Chem 7: 11/12/17 05:00 Laboratory Results - last 24 hr 11/11/17 11/11/17 11/12/17 11:01 12:12 05:00 Hgb 9.5 L Hct 27.8 L Blood Type A Positive Antibody Screen Negative Antibody Identification Cancelled Rout Panel Path Interp Cancelled MTS Gel Crossmatch See Detail - Imaging Impressions Knee X-Ray 11/11/17 00:00 CONCLUSION: Appropriate postoperative appearance of the right knee status post total arthroplasty. Assessment and Plan - Problem List (1) Osteoarthritis of right knee Code(s): M17.11 - Unilateral primary osteoarthritis, right knee Status: Acute - Assessment and Plan Ortho stable PT/Rehab Aspirin 81mg BID x 4 weeks for DVT/PE prophylaxsis Discharge home on 11-[address] [facility] RN/PT Patient will ask Dr Chavez(pain mx) to manage pain Rxs post op
[2017-11-12] MEDS: Morphine Inj 4 MG/ML Vial IV.PUSH PRN ×2 (07:13→20:31)
[2017-11-12] MEDS: FLUoxetine 20 MG Capsule PO SCH (08:26)
[2017-11-12] MEDS: Senna/Docusate Sodium 8.6/50 MG Tablet PO SCH ×2 (08:26→20:32)
[2017-11-13 01:47] VITALS: RESP 18
--- NOTE | 2017-11-13 07:39 | P.PNOP ---
Subjective Interval history: pt complains of right knee soreness, was unable to participate in therapy yesterday due to dizziness and low blood pressure Physical Exam Vital signs: Vital Signs 11/12/17 08:00 11/12/17 10:11 11/12/17 12:00 Temperature 99.1 F 98.7 F Pulse Rate 78 75 Respiratory Rate 18 18 Blood Pressure 79/53 L 107/60 82/54 L Pulse Oximetry 95 98 11/12/17 16:00 11/12/17 20:00 11/13/17 00:00 Temperature 98.6 F 99.8 F H 98.2 F Pulse Rate 80 83 85 Respiratory Rate 20 20 18 Blood Pressure 95/52 L 111/56 L 96/51 L Pulse Oximetry 99 96 99 11/13/17 04:00 Temperature 97.8 F Pulse Rate 84 Respiratory Rate 18 Blood Pressure 100/55 L Pulse Oximetry 99 Intake & Output 11/12/17 11/13/17 11/13/17 18:59 06:59 18:59 Intake Total 1200 / 1200 2680 / 2680 Output Total 0 / 0 100 / 100 Balance 1200 / 1200 2580 / 2580 Intake: IV 1200 / 1200 1000 / 1000 LR 1000 mL Inj 1,000 ML @ 30 1000 / 1000 1000 / 1000 mls/hr IV.SIG .Q24H PREMA Rx#: [id number] Ancef Inj 1,000 MG In NS Inj 200 / 200 100 ML @ 200 mls/hr IV.SIG Q6H PREMA Rx#:[id number] Oral 480 / 480 Anesthesia Amount 1200 / 1200 Output: Urine 0 / 0 0 / 0 Estimated Blood Loss 100 / 100 Other: Date of Last Bowel Movement 11/12/17 Narrative: right knee dressing dry and intact, ice in place no calf tenderness sensation intact Results - Labs CBC & Chem 7: 11/12/17 05:00 Assessment and Plan - Problem List (1) Osteoarthritis of right knee Code(s): M17.11 - Unilateral primary osteoarthritis, right knee Status: Acute - Assessment and Plan POD # 2 s/p R TKA hgb pending from this am Ortho stable PT/Rehab Aspirin 81mg BID x 4 weeks for DVT/PE prophylaxsis Discharge home today with [facility] if stable and if blood pressure normalizes and able to participate in therapy Patient will ask Dr Chavez(pain mx) to manage pain Rxs post op
[2017-11-13] MEDS: FLUoxetine 20 MG Capsule PO SCH (08:00)
[2017-11-13] MEDS: Senna/Docusate Sodium 8.6/50 MG Tablet PO SCH (08:00)
[2017-11-13 08:51] LABS: Hematocrit 30.9 % (35.0-46.0)
[2017-11-13 12:52] VITALS: BP 106/52; PULSE 85; TEMP 98.5; O2SAT 98
== END 2017-11-13 15:55 | disposition home health service (06) ==
LOC: HSDI 11-11 10:09 → N06 11-11 20:52
PROVIDERS: ADMIT Orthopaedic Surgery Orthopaedic Surgery of the Spine; ATTEND Orthopaedic Surgery Orthopaedic Surgery of the Spine